=== PATIENT | female | born 1950 | race Caucasian/White ===

== ENCOUNTER 2023-11-10 16:05 | Inpatient (IN) | payer MEDICARE, OTHER ==
[~2023-11-10] VITALS: Ht 167.6 cm; Wt 70.8 kg
[2023-11-10 17:26] LABS: CALCIUM, SERUM 8.3 mg/dL (8.5-10.1); CARBON DIOXIDE 31 mmol/L (21-32); CHLORIDE 94 mmol/L (98-107); CREATININE 0.6 mg/dL (0.6-1.3); GLUCOSE 168 mg/dL (74-106); SERUM AMMONIA 126 umol/L (11-32); SODIUM SERUM 132 mmol/L (136-145); UREA NITROGEN, BLOOD 15 mg/dL (7-18)
[2023-11-10 17:30] LABS: BASOPHILS % (AUTO) 0.2 % (0.0-2.0); EOSINOPHILS % (AUTO) 0.1 % (0.0-6.0); HEMATOCRIT 37 % (33-45); HEMOGLOBIN 12.3 g/dL (11.5-14.8); LYMPHOCYTES # (AUTO) 0.7 K/uL (0.8-4.8); LYMPHOCYTES % (AUTO) 3.6 % (20.0-44.0); MEAN CORPUSCULAR HEMOGLOBIN 25 PG (26.0-33.0); MEAN CORPUSCULAR HGB CONC 33 g/dl (31.0-36.0); MEAN CORPUSCULAR VOLUME 77 fL (82-100); MONOCYTES # (AUTO) 0.9 K/uL (0.1-1.30); MONOCYTES % (AUTO) 4.8 % (2.0-12.0); NEUTROPHILS # (AUTO) 16.4 K/uL (1.8-8.9); NEUTROPHILS % (AUTO) 91.3 % (43.0-81.0); PLATELET COUNT (AUTO) 441 K/uL (150-450); RED BLOOD CELL COUNT(AUTO) 4.85 MIL/uL (4.0-5.2); RED CELL DISTRIBUTION WIDTH 21.6 % (11.5-15.0)
[2023-11-10 17:40] LABS: ALANINE AMINOTRANSFERASE 61 U/L (12-78); ALBUMIN 1.7 g/dL (3.4-5.0); ASPARTATE AMINOTRANSFERASE 168 U/L (15-37); BILIRUBIN,DIRECT 9.8 mg/dL (0.0-0.2)
[2023-11-10 17:41] LABS: ALKALINE PHOSPHATASE 1296 U/L (46-116)
[2023-11-10 17:44] LABS: INR 1.18 (0.91-1.10); PARTIAL THROMBOPLASTIN TIME 27.1 SEC (24.3-34.3); PROTHROMBIN TIME 12.4 SECS (9.2-11.1)
[2023-11-10 17:46] LABS: THYROID STIMULATING HORMONE 2.134 uIU/mL (0.358-3.74)
[2023-11-10] MEDS ORDERED: LOSA100T31 PO (17:51)
[2023-11-10] MEDS ORDERED: PREG-59 PO (17:51)
[2023-11-10] MEDS ORDERED: SUCR1TAB PO (17:51)
[2023-11-10] MEDS ORDERED: HYDR12.55 PO (17:51)
[2023-11-10] MEDS ORDERED: ONDA4TAB11 SL (17:51)
[2023-11-10] MEDS ORDERED: ATOR10TA PO (17:51)
[2023-11-10] MEDS ORDERED: DULO30CA52 PO (17:51)
[2023-11-10] MEDS ORDERED: PANT40TA49 PO (17:51)
[2023-11-10] MEDS ORDERED: HYDR10TA PO (17:51)
[2023-11-10] MEDS ORDERED: LEVO75TA7 PO (17:51)
[2023-11-10] MEDS ORDERED: ONDANSETRON HCL/PF 4 MG/2 ML VIAL ONE (17:57)
[2023-11-10] MEDS ORDERED: LACTULOSE 10 G/15 ML UDC (PYXIS) PO ONE (18:00)
[2023-11-10] MEDS ORDERED: IV PREMIX D5 1/2NS + KCL 1,000 ML IV ONE (18:00)
[2023-11-10] MEDS ORDERED: ONDANSETRON HCL/PF - ER 4 MG/2 ML VIAL IV ONE (18:00)
[2023-11-10] MEDS ORDERED: LACTULOSE 10 G/15 ML UDC (PYXIS) ONE (18:27)
[2023-11-10 18:54] LABS: APPEARANCE,URINE SLIGHTLY CLOUDY (CLEAR); BILIRUBIN,URINE 3+ (NEGATIVE); BLOOD, URINE NEGATIVE Ery/uL (NEGATIVE); COLOR,URINE YELLOW (YELLOW); KETONES,URINE TRACE mg/dL (NEGATIVE); LEUKOCYTE ESTERASE ,URINE TRACE (NEGATIVE); NITRITE, URINE NEGATIVE (NEGATIVE); PH,URINE 7.5 (5.0-8.0); PROTEIN,URINE 1+ mg/dl (NEGATIVE); UGLUCOSE 1+ mg/dL (NEGATIVE)
[2023-11-10] MEDS ORDERED: IV NS 0.9% 1,000 ML IV PRN (19:00)
[2023-11-10] MEDS ORDERED: ONDANSETRON HCL/PF 4 MG/2 ML VIAL IVP PRN (19:00)
[2023-11-10] MEDS ORDERED: MAG HYDROX/AL HYDROX/SIMETH 30 ML UDC PO PRN (19:00)
[2023-11-10] MEDS ORDERED: MAGNESIUM HYDROXIDE 30 ML UDC PO PRN (19:00)
[2023-11-10] MEDS ORDERED: ONDANSETRON 4 MG TAB.RAPDIS SL PRN (19:00)
[2023-11-10] MEDS ORDERED: Z GUARD REMEDY 4 OZ OINT TP PRN (19:00)
[2023-11-10 19:18] LABS: ADD URINE CULTURE NO; BACTERIA,URINE RARE /HPF (None Seen); RBC,URINE 0-2 /HPF (0-2)
[2023-11-10 19:19] LABS: MUCUS,URINE Few /LPF (None Seen)
[2023-11-10] MEDS ORDERED: CLONIDINE HCL 0.1 MG TABLET PO PRN (19:30)
[2023-11-10 21:15] VITALS: BP 143/60; TEMP 98.6; O2SAT 94
[2023-11-10 22:00] VITALS: BP_SYST 143; TEMP 98.6; O2SAT 94
[2023-11-10] MEDS ORDERED: CEFTRIAXONE 1GM BAG (ER ONLY) 50 ML IV ONE (23:41)
[2023-11-10] MEDS: CEFTRIAXONE 1 G in IV D5W 50 ML IV SCH (23:44)
[2023-11-11] MEDS: PANTOPRAZOLE 40 MG TABLET.DR PO SCH ×2 (08:32→18:20)
[2023-11-11] MEDS: PREGABALIN 100 MG CAPSULE PO SCH ×3 (08:32→18:20)
[2023-11-11] MEDS: DULOXETINE HCL 30 MG CAPSULE.DR PO SCH ×2 (08:32→18:20)
[2023-11-11] MEDS: SUCRALFATE 1 G TABLET PO SCH ×2 (08:33→18:19)
[2023-11-11] MEDS: LOSARTAN POTASSIUM 50 MG TABLET PO SCH (08:33)
[2023-11-11] MEDS: LEVOTHYROXINE SODIUM 75 MCG TABLET PO SCH (08:33)
[2023-11-11] MEDS: HYDROCORTISONE 5 MG TABLET PO SCH (08:33)
[2023-11-11 10:16] LABS: CALCIUM, SERUM 8.9 mg/dL (8.5-10.1); CREATININE 0.9 mg/dL (0.6-1.3); POTASSIUM 3.8 mmol/L (3.5-5.1)
[2023-11-11 10:20] LABS: BASOPHILS % (AUTO) 0.1 % (0.0-2.0); EOSINOPHILS % (AUTO) 0.1 % (0.0-6.0); HEMATOCRIT 40 % (33-45); LYMPHOCYTES # (AUTO) 2.3 K/uL (0.8-4.8); MEAN CORPUSCULAR HEMOGLOBIN 25 PG (26.0-33.0); MEAN CORPUSCULAR HGB CONC 33 g/dl (31.0-36.0); MEAN CORPUSCULAR VOLUME 77 fL (82-100); MONOCYTES # (AUTO) 1.4 K/uL (0.1-1.30); MONOCYTES % (AUTO) 6.2 % (2.0-12.0); NEUTROPHILS # (AUTO) 19.4 K/uL (1.8-8.9); NEUTROPHILS % (AUTO) 83.6 % (43.0-81.0); PLATELET COUNT (AUTO) 577 K/uL (150-450); RED BLOOD CELL COUNT(AUTO) 5.13 MIL/uL (4.0-5.2); RED CELL DISTRIBUTION WIDTH 22.4 % (11.5-15.0); WHITE BLOOD COUNT (AUTO) 23.2 K/uL (4.3-11.0)
[2023-11-11 10:30] LABS: ALBUMIN 1.8 g/dL (3.4-5.0); BILIRUBIN,DIRECT 12.3 mg/dL (0.0-0.2); BILIRUBIN,TOTAL 17.2 mg/dL (0.2-1.0); PHOSPHORUS 3.2 mg/dL (2.5-4.9); TOTAL PROTEIN, SERUM 7.7 g/dL (6.4-8.2)
[2023-11-11] MEDS ORDERED: LACTULOSE 10 G/15 ML UDC (PYXIS) PO PRN (10:30)
[2023-11-11] MEDS: RIFAXIMIN 550 MG TABLET PO SCH ×2 (12:28→18:20)
[2023-11-11] MEDS ORDERED: CT SWABBABLE VALVE TRANS SET 1 EA INFUS.SET MC ONE (17:18)
[2023-11-11] MEDS ORDERED: IOHEXOL-350 100 ML VIAL IV ONE (17:18)
[2023-11-11] MEDS ORDERED: IV NS 0.9% 250 ML IV ONE (17:18)
[2023-11-11 20:00] VITALS: BP 123/82; TEMP 98.5; O2SAT 97
[2023-11-11] MEDS: CEFTRIAXONE 1 G in IV D5W 50 ML IV SCH (20:04)
[2023-11-11] MEDS: ACETAMINOPHEN 325 MG TABLET PO PRN (23:41)
[2023-11-12 07:25] LABS: BASOPHILS % (AUTO) 0.2 % (0.0-2.0); EOSINOPHILS % (AUTO) 0.1 % (0.0-6.0); HEMATOCRIT 36 % (33-45); HEMOGLOBIN 11.8 g/dL (11.5-14.8); LYMPHOCYTES # (AUTO) 1.7 K/uL (0.8-4.8); LYMPHOCYTES % (AUTO) 11.6 % (20.0-44.0); MEAN CORPUSCULAR HEMOGLOBIN 25 PG (26.0-33.0); MEAN CORPUSCULAR HGB CONC 33 g/dl (31.0-36.0); MEAN CORPUSCULAR VOLUME 77 fL (82-100); MONOCYTES # (AUTO) 1.2 K/uL (0.1-1.30); MONOCYTES % (AUTO) 8.3 % (2.0-12.0); NEUTROPHILS # (AUTO) 11.5 K/uL (1.8-8.9); NEUTROPHILS % (AUTO) 79.8 % (43.0-81.0); PLATELET COUNT (AUTO) 492 K/uL (150-450); RED BLOOD CELL COUNT(AUTO) 4.65 MIL/uL (4.0-5.2); RED CELL DISTRIBUTION WIDTH 22.4 % (11.5-15.0); WHITE BLOOD COUNT (AUTO) 14.4 K/uL (4.3-11.0)
[2023-11-12] MEDS: LEVOTHYROXINE SODIUM 75 MCG TABLET PO SCH (07:57)
[2023-11-12] MEDS: PANTOPRAZOLE 40 MG TABLET.DR PO SCH ×2 (07:57→16:24)
[2023-11-12] MEDS: SUCRALFATE 1 G TABLET PO SCH ×2 (07:57→16:24)
[2023-11-12 08:00] VITALS: BP 119/63; TEMP 99.6; O2SAT 95
[2023-11-12 08:08] LABS: ALBUMIN 1.6 g/dL (3.4-5.0); BILIRUBIN,DIRECT 13.6 mg/dL (0.0-0.2); BILIRUBIN,TOTAL 16.7 mg/dL (0.2-1.0); CALCIUM, SERUM 8.9 mg/dL (8.5-10.1); CREATININE 0.7 mg/dL (0.6-1.3); MAGNESIUM 2.2 mg/dL (1.8-2.4); PHOSPHORUS 3.1 mg/dL (2.5-4.9); TOTAL PROTEIN, SERUM 6.9 g/dL (6.4-8.2)
[2023-11-12 08:16] LABS: THYROID STIMULATING HORMONE 4.445 uIU/mL (0.358-3.74); URIC ACID 2.4 mg/dL (2.6-7.2)
[2023-11-12] MEDS: HYDROCORTISONE 5 MG TABLET PO SCH (08:40)
[2023-11-12] MEDS: PREGABALIN 100 MG CAPSULE PO SCH ×3 (08:40→16:24)
[2023-11-12] MEDS: LOSARTAN POTASSIUM 50 MG TABLET PO SCH (08:41)
[2023-11-12] MEDS: RIFAXIMIN 550 MG TABLET PO SCH ×2 (08:41→16:24)
[2023-11-12] MEDS: DULOXETINE HCL 30 MG CAPSULE.DR PO SCH ×2 (08:42→16:24)
[2023-11-12 09:01] LABS: PHOSPHORUS 3.2 mg/dL (2.5-4.9)
[2023-11-12] MEDS ORDERED: POTASSIUM CHLORIDE 20 MEQ TAB.PRT.SR PO ONE (09:30)
[2023-11-12] MEDS: ACETAMINOPHEN 325 MG TABLET PO PRN (09:55)
[2023-11-12] MEDS ORDERED: TRAMADOL HCL 50 MG TABLET PO PRN (15:30)
[2023-11-12 16:00] VITALS: BP 130/67; TEMP 98.2; O2SAT 98
[2023-11-12] MEDS: LACTULOSE 10 G/15 ML UDC (PYXIS) PO SCH (16:24)
[2023-11-12] MEDS: CEFTRIAXONE 1 G in IV D5W 50 ML IV SCH (19:20)
[2023-11-12 20:35] VITALS: BP 140/82; TEMP 98.4; O2SAT 93
[2023-11-13 03:53] VITALS: TEMP 98.1; O2SAT 98
[2023-11-13 07:00] LABS: BASOPHILS % (AUTO) 0.3 % (0.0-2.0); EOSINOPHILS % (AUTO) 0.2 % (0.0-6.0); HEMATOCRIT 34 % (33-45); HEMOGLOBIN 11.4 g/dL (11.5-14.8); MEAN CORPUSCULAR HEMOGLOBIN 26 PG (26.0-33.0); MEAN CORPUSCULAR HGB CONC 33 g/dl (31.0-36.0); MEAN CORPUSCULAR VOLUME 77 fL (82-100); MONOCYTES # (AUTO) 0.9 K/uL (0.1-1.30); MONOCYTES % (AUTO) 8.2 % (2.0-12.0); NEUTROPHILS # (AUTO) 8.6 K/uL (1.8-8.9); NEUTROPHILS % (AUTO) 74.3 % (43.0-81.0); PLATELET COUNT (AUTO) 425 K/uL (150-450); RED BLOOD CELL COUNT(AUTO) 4.47 MIL/uL (4.0-5.2); RED CELL DISTRIBUTION WIDTH 21.9 % (11.5-15.0); WHITE BLOOD COUNT (AUTO) 11.6 K/uL (4.3-11.0)
[2023-11-13 07:49] LABS: ALANINE AMINOTRANSFERASE 81 U/L (12-78); ASPARTATE AMINOTRANSFERASE 295 U/L (15-37); BILIRUBIN,TOTAL 15.9 mg/dL (0.2-1.0); CALCIUM, SERUM 8.5 mg/dL (8.5-10.1); CARBON DIOXIDE 30 mmol/L (21-32); CHLORIDE 98 mmol/L (98-107); CREATININE 0.5 mg/dL (0.6-1.3); GLUCOSE 111 mg/dL (74-106); POTASSIUM 3.2 mmol/L (3.5-5.1); SODIUM SERUM 136 mmol/L (136-145); TOTAL PROTEIN, SERUM 6.5 g/dL (6.4-8.2); UREA NITROGEN, BLOOD 12 mg/dL (7-18)
[2023-11-13 08:01] LABS: ALKALINE PHOSPHATASE 1054 U/L (46-116)
[2023-11-13 08:02] LABS: ALBUMIN 1.4 g/dL (3.4-5.0)
[2023-11-13] MEDS: PANTOPRAZOLE 40 MG TABLET.DR PO SCH (08:20)
[2023-11-13] MEDS: SUCRALFATE 1 G TABLET PO SCH (08:21)
[2023-11-13] MEDS: LEVOTHYROXINE SODIUM 75 MCG TABLET PO SCH (08:21)
[2023-11-13] MEDS: PREGABALIN 100 MG CAPSULE PO SCH ×2 (08:22→12:17)
[2023-11-13] MEDS: HYDROCORTISONE 5 MG TABLET PO SCH (08:23)
[2023-11-13] MEDS: DULOXETINE HCL 30 MG CAPSULE.DR PO SCH (08:23)
[2023-11-13] MEDS: RIFAXIMIN 550 MG TABLET PO SCH (08:26)
[2023-11-13] MEDS: LOSARTAN POTASSIUM 50 MG TABLET PO SCH (08:26)
[2023-11-13] MEDS: LACTULOSE 10 G/15 ML UDC (PYXIS) PO SCH (08:27)
[2023-11-13 08:51] VITALS: BP 136/77; TEMP 97.6; O2SAT 95
[2023-11-13] MEDS ORDERED: LACT10SO58 PO (10:11)
[2023-11-13] MEDS ORDERED: RIFA550T PO (10:11)
[2023-11-13] MEDS ORDERED: TRAM50TA2 PO (10:12)
[2023-11-13] MEDS: POTASSIUM CHLORIDE 20 MEQ TAB.PRT.SR PO SCH ×2 (11:31→12:17)
== END 2023-11-13 16:25 | disposition home or self-care (01) | DRG 441 ==
LOC: ER 16:11 → MED 20:11
PROVIDERS: ADMIT Internal Medicine; ATTEND Internal Medicine
DX: K76.82 Hepatic encephalopathy (principal); E43 Unspecified severe protein-calorie malnutrition; R65.11 Systemic inflammatory response syndrome (SIRS) of non-infectious origin with acute organ dysfunction; E87.1 Hypo-osmolality and hyponatremia; C78.7 Secondary malignant neoplasm of liver and intrahepatic bile duct; E27.40 Unspecified adrenocortical insufficiency; I10 Essential (primary) hypertension; C43.9 Malignant melanoma of skin, unspecified; Z79.890 Hormone replacement therapy; Z79.899 Other long term (current) drug therapy; E80.6 Other disorders of bilirubin metabolism; E78.5 Hyperlipidemia, unspecified; E86.1 Hypovolemia; E88.09 Other disorders of plasma-protein metabolism, not elsewhere classified; K72.10 Chronic hepatic failure without coma; Z79.52 Long term (current) use of systemic steroids; Z92.21 Personal history of antineoplastic chemotherapy; Z97.0 Presence of artificial eye; E03.9 Hypothyroidism, unspecified; D72.829 Elevated white blood cell count, unspecified; R91.1 Solitary pulmonary nodule; R59.0 Localized enlarged lymph nodes
CPT/HCPCS: 36415; 70450-TC; 71045-TC; 74160-TC; 76700-TC; 80048-TC; 80076-TC; 81001; 82140-TC; 82533; 83735-TC; 83935-TC; 84100-TC; 84300-TC; 84443-TC; 84550-TC; 85025-TC; 85730-TC; 87040-TC; 87086-TC; A4223; G0378; J0696; J2405; J3490; J7030; J7040; J7050; J7060; Q9967